=== PATIENT | female | born 1970 | race Caucasian/White ===

== ENCOUNTER 2019-01-28 20:01 | Emergency (ER) | payer MEDICARE ==
[~2019-01-28] VITALS: Ht 162.6 cm; Wt 118.2 kg
[2019-01-28 20:08] VITALS: Ht 162.6 cm; Wt 118.2 kg
[2019-01-28] MEDS ORDERED: LISINOPRIL-HCT1 EAC8 PO (20:09)
[2019-01-28] MEDS ORDERED: TOPROL XL50 MG PO (20:09)
[2019-01-28] MEDS ORDERED: BAYER CHEWABLE81 MG PO (20:09)
[2019-01-28] MEDS ORDERED: OMEPRAZOLE40 MG PO (20:10)
[2019-01-28] MEDS ORDERED: PRAVACHOL40 MG PO (20:10)
[2019-01-28 20:30] LABS: BASOPHILS 0.6 % (0-2); EOSINOPHILS 1.7 % (0-7); HEMATOCRIT 36.6 % (36.0-48.0); HEMOGLOBIN 11.9 g/dL (12-16); IMMATURE GRANULOCYTES 0.3 % (0-5); LYMPHOCYTES 25.3 % (15-50); MCH 25.4 pg (26.0-34.0); MCHC 32.5 g/dL (31.0-37.0); MEAN PLATELET VOLUME 8.8 fL (7.4-10.4); MONOCYTES 7.4 % (2-11); NEUTROPHILS 64.7 % (40-80); PLATELET COUNT 305 10x3/uL (130-400); RBC 4.69 10x6/uL (4.00-5.40); RDW 15.8 % (11.5-14.5); WBC 10.8 10x3/uL (4.8-10.8)
[2019-01-28 20:32] LABS: HCG URINE NEGATIVE (NEGATIVE)
[2019-01-28 20:33] LABS: APPEARANCE CLEAR (CLEAR); BILIRUBIN NEGATIVE (NEGATIVE); COLOR YELLOW (YELLOW); GLUCOSE 100 mg/dL (NEGATIVE); KETONE NEGATIVE (NEGATIVE); NITRITE NEGATIVE (NEGATIVE); PROTEIN NEGATIVE (NEGATIVE); UROBILINOGEN NORMAL (NORMAL)
[2019-01-28 20:34] LABS: EPITHELIAL CELLS 0-5 /hpf (0-5); RED CELLS - URINE NONE SEEN /hpf (0-5); WHITE CELLS - URINE 0-5 /hpf (0-5)
[2019-01-28 20:35] LABS: BACTERIA FEW /hpf (NONE SEEN)
[2019-01-28 20:42] LABS: ALBUMIN 3.5 g/dL (3.4-5.0); ANION GAP 12.8 mmol/L (8-16); BILIRUBIN - TOTAL 0.39 mg/dL (0.2-1.3); CALCIUM 9.1 mg/dL (8.5-10.1); CARBON DIOXIDE 28.3 mmol/L (21.0-32.0); CREATININE - SERUM 1.1 mg/dL (0.6-1.3); POTASSIUM - SERUM 3.1 mmol/L (3.5-5.1); PROTEIN - SERUM 8.2 g/dL (6.4-8.2)
[2019-01-28] MEDS ORDERED: MECLIZINE HCL25 MG PO (22:27)
[2019-01-28 23:10] VITALS: BP 112/69
== END 2019-01-28 23:10 | disposition home or self-care (01) ==
LOC: D.ER 20:01
PROVIDERS: Emergency Medicine
DX: R42 Dizziness and giddiness (principal)

== ENCOUNTER 2019-02-04 15:48 | Emergency (ER) | payer MEDICARE ==
[~2019-02-04] VITALS: Ht 162.6 cm; Wt 118.2 kg
[~2019-02-04 15:48] MED LIST: BAYER CHEWABLE81 MG PO; LISINOPRIL-HCT1 EAC8 PO; MECLIZINE HCL25 MG PO; OMEPRAZOLE40 MG PO; PRAVACHOL40 MG PO; TOPROL XL50 MG PO
[2019-02-04 15:51] VITALS: Ht 162.6 cm; Wt 118.2 kg
[2019-02-04 16:19] LABS: BASOPHILS 0.6 % (0-2); EOSINOPHILS 0.3 % (0-7); HEMATOCRIT 34.7 % (36.0-48.0); HEMOGLOBIN 11.4 g/dL (12-16); IMMATURE GRANULOCYTES 0.2 % (0-5); LYMPHOCYTES 13.1 % (15-50); MCH 25.6 pg (26.0-34.0); MCHC 32.9 g/dL (31.0-37.0); MCV 77.8 fL (80.0-100.0); MEAN PLATELET VOLUME 9.2 fL (7.4-10.4); MONOCYTES 4.5 % (2-11); NEUTROPHILS 81.3 % (40-80); PLATELET COUNT 264 10x3/uL (130-400); RBC 4.46 10x6/uL (4.00-5.40); RDW 15.5 % (11.5-14.5); WBC 10.5 10x3/uL (4.8-10.8)
[2019-02-04 16:36] LABS: ALBUMIN 3.4 g/dL (3.4-5.0); ANION GAP 17.5 mmol/L (8-16); BILIRUBIN - TOTAL 0.62 mg/dL (0.2-1.3); CALCIUM 9.4 mg/dL (8.5-10.1); CARBON DIOXIDE 23.3 mmol/L (21.0-32.0); CREATININE - SERUM 1.2 mg/dL (0.6-1.3); POTASSIUM - SERUM 3.8 mmol/L (3.5-5.1); PROTEIN - SERUM 7.7 g/dL (6.4-8.2)
[2019-02-04 16:59] LABS: APPEARANCE CLEAR (CLEAR); BILIRUBIN NEGATIVE (NEGATIVE); COLOR YELLOW (YELLOW); GLUCOSE NEGATIVE (NEGATIVE); KETONE NEGATIVE (NEGATIVE); NITRITE NEGATIVE (NEGATIVE); PROTEIN TRACE mg/dL (NEGATIVE); SPECIFIC GRAVITY 1.025 (1.005-1.020); UROBILINOGEN NORMAL (NORMAL)
[2019-02-04] MEDS ORDERED: IMODIUM2 MG PO (18:03)
[2019-02-04] MEDS ORDERED: ZOFRAN ODT4 MG/UDTAB PO (18:03)
[2019-02-04 19:00] VITALS: BP 126/68
== END 2019-02-04 19:01 | disposition home or self-care (01) ==
LOC: D.ER 15:48
PROVIDERS: Emergency Medicine
DX: K52.9 Noninfective gastroenteritis and colitis, unspecified (principal); R42 Dizziness and giddiness